=== PATIENT | female | born 1940 | race Caucasian/White ===

== ENCOUNTER → 2016-10-01 | Day surgery (SDC) | payer MEDICARE, OTHER ==
[~2016-10-01] VITALS: Ht 167.6 cm; Wt 123.4 kg
[~2016-10-01] MED LIST: AMLO2.5T PO; ASPI-973 PO; IRBE300T42 PO; METO25TA99 PO; OXYB5TAB PO; PRAV20TA2 PO; Sodium Chloride LOK Flush 10 mL Syringe IV PRN; ZYL100 PO; fentaNYL-PF 50 mCg/mL 2 mL Inj IVPUSH PRN
[2016-10-01 07:47] VITALS: BP 182/91; PULSE 80; RESP 14; O2SAT 99
[2016-10-01] MEDS: 0.9% Sodium Chloride 1,000 ML IV PRN ×2 (08:57→09:07)
--- NOTE | 2016-10-01 09:13 | PCM.ENDCOL ---
Colonoscopy Date of Service: Oct 01, 2016 Physician Serge Anderson MD Pre Procedure Diagnosis: Screening history of polyps Post Procedure Dx & Findings: Polyp hemorrhoids diverticuli Procedure Colonoscopy PROCEDURE IN DETAIL: Prep adequate Withdrawal time 14 minutes After unremarkable rectal examination the Olympus video colonoscope was inserted patient's anal canal and was advanced to cecum. Landmarks were identified including the ileocecal valve and appendiceal orifice. Scope was withdrawn systematically. Visualized colonic mucosa showed healthy shiny mucosa with normal healthy-appearing vasculature. In the cecum, there was a 1 mm polyp which removed completely using cold forceps. In the transverse colon there was a 1 mm polyp which was removed completely using cold forceps. Entire colon from the distal sigmoid colon to the cecum, multiple diverticulosis multiple large noted. Mostly these were on the left side. In the rectum retroflexion was done which showed hemorrhoids. Anal canal was inspected carefully on the way out and hemorrhoids noted. Impression Polyp 2 status post complete removal Diverticuli Hemorrhoids Recommendation Repeat colonoscopy 5 years Diverticular diet Presedation Assessment Risks and Benefits Informed consent was obtained from the patient after all risks and benefits including but not limited to drug reaction, infection, pain, bleeding, perforation, as well as alternatives were discussed. Patient monitoring Continuous pulse oximetry, cardiac monitoring, blood pressure monitoring, IV access, and oxygen at 2L per nasal cannula. Periprocedural Fentanyl: Fentanyl 75mcg Incrementally Midazolam: Midazolam 4mg Incrementally Complications There were no periprocedural complications identified. Post Procedure Plan Post Procedure Recommendations 1. Restrict activities today. 2. Resume normal activities in the morning. 3. Resume medications. 4. Patient informed of normal post procedure side effects as bloating, drowsiness, blood streaking in the stool. 5. average risk CRCS. If colon polyps come back as: -Hyperplastic- can repeat colonoscopy in 10 years -Tubular adenoma- repeat colonoscopy in 5 years -Tubulovillous/villous adenoma- repeat colonoscopy in 3 years -If any dysplasia- return to clinic as soon as possible 6. Please don't hesitate to call me with any questions. Serge Anderson MD Oct 01, 2016 09:13
[2016-10-01 09:16] VITALS: BP 167/70; PULSE 57; RESP 12; O2SAT 97
[2016-10-01 09:33] VITALS: BP 154/67; RESP 12; O2SAT 98
--- NOTE | 2016-10-03 10:22 | PATH ---
SURGICAL PATHOLOGY Attending Physician:Serge Anderson M.D. CASE STATUS: Signed Out PATIENT NAME: PRASHANTH MARIO PID: [id number] : 1940 DATE COLLECTED:10/01/2016 16:48 SPECIMEN: 1: Colon, Polyp 2: Colon, Polyp CLINICAL HISTORY: COLON POLYP 1). CECUM POLYP 2). TRANSVERSE COLON POLYP FINAL DIAGNOSIS: 1.CECUM, POLYP, BIOPSY: -TUBULAR ADENOMA IN 2 OF 3 FRAGMENTS. - Additional deeper levels examined. 2.TRANSVERSE COLON POLYP, BIOPSY: - TUBULAR ADENOMA. ICD10 D12.6 GROSS DESCRIPTION: The specimen is received in two formalin filled containers labeled with the patient's name. 1). The specimen is labeled "cecum polyp" and consists of portions of tissue which aggregate to 0.2 x 0.2 x 0.2 CM. The specimen is entirely submitted in cassette 1A. 2). The specimen is labeled "transverse colon polyp" and consists of a 0.3 x 0.3 x 0.2 CM portion of tissue which is entirely submitted in cassette 2A. 10/01/2016DC MICRO DESCRIPTION: See diagnosis. ICD-9 CODES: CPT CODES: 1: 77174 2: 82718 Electronically Signed Out Nicola Mary MD [facility] Pathology [facility], [place] [address] Technical component performed at [facility], [facility] [address], [place], [address]
== END | disposition home or self-care (01) ==
LOC: END 00:04
PROVIDERS: ATTEND Internal Medicine
DX: Z12.11 Encounter for screening for malignant neoplasm of colon (principal); D12.0 Benign neoplasm of cecum; D12.3 Benign neoplasm of transverse colon; K57.30 Diverticulosis of large intestine without perforation or abscess without bleeding; K64.8 Other hemorrhoids; Z86.010 Personal history of colon polyps; I10 Essential (primary) hypertension; K21.9 Gastro-esophageal reflux disease without esophagitis; E78.5 Hyperlipidemia, unspecified; E11.42 Type 2 diabetes mellitus with diabetic polyneuropathy; Z79.82 Long term (current) use of aspirin
CPT/HCPCS: 45380; 99153; G0500; J2250; J3010; J7030